=== PATIENT | male | born 1975 | race African-American/Black ===

== ENCOUNTER 2021-02-03 11:39 | Emergency (ER) | payer OTHER ==
[~2021-02-03] VITALS: Ht 177.8 cm; Wt 83.9 kg
[2021-02-03] MEDS ORDERED: AMOX-CLAV 875-1 EACH PO (15:32)
[2021-02-03] MEDS ORDERED: KETO10TA2 PO (15:32)
== END 2021-02-03 16:39 | disposition home or self-care (01) ==
LOC: ER 11:39
DX: H92.01 Otalgia, right ear (principal); H60.8X1 Other otitis externa, right ear